=== PATIENT | female | born 1985 | race Caucasian/White ===

== ENCOUNTER 2019-11-17 00:24 | Emergency (ER) | payer OTHER, SELFPAY ==
[2019-11-17 00:31] VITALS: PULSE 90; RESP 16; TEMP 36.7; O2SAT 96; BMI 30.9
[2019-11-17 01:15] LABS: Basophils % 0.4 %; Eosinophils # 0.4 10^3/uL (0.0-0.8); Eosinophils % 4.4 %; Hematocrit 41.1 % (37.0-47.0); Hemoglobin 13.8 g/dL (11.5-15.3); Lymphocytes # 3.1 10^3/uL (0.8-4.8); Lymphocytes % 38.1 %; Mean Corpuscular HGB Conc 33.6 g/dL (30.0-36.0); Mean Corpuscular Hemoglobin 31.6 pg (28.0-34.0); Mean Corpuscular Volume 94.1 fL (81-99); Mean Platelet Volume 10.4 fL (7.4-10.4); Monocytes # 0.5 10^3/uL (0.2-0.9); Monocytes % 6.6 %; Neutrophils # 4.1 10^3/uL (1.8-7.7); Neutrophils % 50.4 %; Nucleated Red Blood Cells % 0 %; Platelet Count 256 10^3/cmm (130-400); Red Blood Count 4.37 10^6/uL (4.1-5.3); Red Cell Distribution Width 12.2 % (12.1-15.1)
[2019-11-17 01:19] LABS: Urine Appearance Cloudy (CLEAR); Urine Color Orange (Yellow)
[2019-11-17 01:20] LABS: Add Urine Microscopic? YES
[2019-11-17 01:31] LABS: Amorphous Sediment Urine 3+; Bacteria Urine 1+; RBC Urine 0-4 /hpf (0-2); Squamous Epithelial Cell Urine 0-4 (0-5); WBC Urine 0-4 /hpf (0-5)
[2019-11-17 01:32] LABS: HCG, Serum Qual Negative (Negative)
[2019-11-17 01:37] LABS: Alanine Aminotransferase 19 U/L (0-33); Albumin Level 4.2 g/dL (3.5-5.2); Alkaline Phosphatase 58 IU/L (35-105); Anion Gap 17.2 (5-19); Aspartate Amino Transferase 19 U/L (0-32); Blood Urea Nitrogen 13 mg/dL (6-20); Calcium 8.9 mg/dL (8.5-10.5); Carbon Dioxide 25 mmol/L (22-29); Chloride 101 mmol/L (98-107); Globulin 2.8 g/dL (1.3-4.6); Glomerular Filtration Rate 70.8 mL/min (90-130); Glucose 101 mg/dL (65-115); Lipase 34 U/L (13-60); Osmolality Calculated 286 mOsm/kg (285-295); Potassium 3.2 mmol/L (3.5-5.1); Sodium 140 mmol/L (136-145); Total Bilirubin 0.2 mg/dL (0.15-1.2)
--- NOTE | 2019-11-17 01:51 | CTR_ITS ---
PROCEDURE INFORMATION: Exam: CT Abdomen And Pelvis With Contrast Exam date and time: 11/17/2019 2:35 AM Age: 34 years old Clinical indication: Abdominal pain; Generalized; Prior surgery; Surgery type: Appy, , gb, hysterectomy; Additional info: Abd pain TECHNIQUE: Imaging protocol: Computed tomography of the abdomen and pelvis with intravenous contrast. Radiation optimization: All CT scans at this facility use at least one of these dose optimization techniques: automated exposure control; mA and/or kV adjustment per patient size (includes targeted exams where dose is matched to clinical indication); or iterative reconstruction. Contrast material: OMNI 300; Contrast volume: 95 ml; Contrast route: INTRAVENOUS (IV); COMPARISON: No relevant prior studies available. RADIATION DOSE METRICS: Total DLP (mGy-cm): 1037.96 FINDINGS: Lungs: The lung bases are clear. Mediastinal space: Possible very small hiatal hernia. Liver: There is fatty infiltration of the liver. Gallbladder and bile ducts: Prior cholecystectomy, no significant biliary tree dilation. Pancreas: Unremarkable. Spleen: Unremarkable. Adrenals: Unremarkable. Kidneys and ureters: No hydronephrosis of either kidney. No visible ureteral calculus. No perinephric fluid. The kidneys enhance homogeneously. Stomach and bowel: Possibility of somewhat thickened mucosa/wall in the stomach. The stomach is poorly distended, and the appearance could be transient on CT. Findings might also represent evidence for gastritis or peptic ulcer disease. Please correlate clinically. There are no CT findings to strongly suggest diverticulitis. Appendix: Reportedly, there has been prior appendectomy. Intraperitoneal space: No free air, ascites, or significant bowel distention. Vasculature: No evidence for abdominal aortic aneurysm. Lymph nodes: No retroperitoneal adenopathy. Bladder: Suspect mild to moderate diffuse urinary bladder wall thickening. Slight indistinctness of the bladder wall. Evaluation is somewhat limited, as the bladder is not well distended. While nonspecific, this could indicate evidence for cystitis. Please correlate clinically. Reproductive: Prior hysterectomy. The right ovary contains a 20 x 16 mm dominant follicle versus small cyst. Significance uncertain due to relatively small size. There is a smaller 13 mm dominant follicle or very small cyst in the right ovary. No significant cul-de-sac fluid. Bones/joints: No significant acute finding. Soft tissues: No significant acute finding. CT/CT abdomen pelvis w con* [id number] IMPRESSION: 1. No free air or significant bowel distention. 2. Suspected urinary bladder wall thickening, possibly indicating cystitis. 3. No hydronephrosis or visible ureteral calculus. No perinephric fluid. 4. Possible thickened mucosa/wall in the stomach, see above discussion. 5. The right ovary contains a 20 x 16 mm dominant follicle versus small cyst. Significance uncertain due to relatively small size. No significant cul-de-sac fluid. 6. Other findings discussed above. Radiation Dose CTDIVOL = (mGy): DLP = 1037.96 (mGy-cm)
[2019-11-17] MEDS: iohexol 300 mg/mL 100 mL Btl IV (03:01)
[2019-11-17] MEDS: sodium chlor 0.9% + KCl 40 mEq 40 MEQ/1,000 ML BAG 1000 MEQ IV (03:08)
[2019-11-17 04:42] VITALS: PULSE 74; RESP 18; O2SAT 98
--- NOTE | 2019-11-18 17:16 | W.ED.ABDPA2 ---
HPI - Abdominal Pain General: Chief Complaint: Abdominal Pain Stated Complaint: LOWER ABD PAIN; N/V Time Seen by Provider: 11/17/19 01:00 History of Present Illness: HPI narrative: 34-year-old female with several days of belly pain, mainly located in her right lower quadrant, as well as periumbilical. She has been vomiting quite a bit. Her states she is not been able to tolerate anything more than a bit of liquid. No food. No diarrhea. She was seen at an outside clinic the day before, and told to come to the ER if her symptoms did not improve. She has a history of multiple belly surgeries. MD elicited complaint: abdominal pain Pain Consistency: constant Location: Periumbilical and RLQ Severity: moderate Quality: cramping and stabbing Radiation: none Migration to: no migration Exacerbating factors: vomiting and movement Relieving factors: nothing Associated Symptoms: Denies change in stool character, fever(s), hematuria and hematemesis Review of Systems Const: Denies: fever(s) Eyes: Denies: change in vision ENMT: Denies: swelling of lips/tongue, epistaxis or sinus pain Card: Denies: chest pain, palpitations, irregular heart rhythm or edema Resp: Denies: dyspnea, productive cough, non-productive cough or wheezing GI: Denies: hematemesis or change in stool character : Denies: hematuria Musc: Reports: back pain; Denies: neck pain Skin/Breast: Denies: rash, pruritus or erythema Neuro: Denies: headache(s), dizziness or vertigo Psych: Denies: anxiety PFSH ED PFSH: Medical History (Updated 11/17/19 @ 04:30 by Per Asencio DO) Immunocompromised patient Social History (Updated 08/08/19 @ 17:46 by Nova Lamas CMA) Smoking and tobacco status: current every day smoker Alcohol intake: never Female Reproductive History: : 1 Physical Exam Const: GENERAL APPEARANCE: well developed ORIENTATION/CONSCIOUSNESS: Yes oriented to person, Yes oriented to place and Yes oriented to time HENMT: COMMON NORMALS: normocephalic, external ears normal and Normal external nose present HEAD & SCALP: normocephalic FACE & SINUS: normal facial exam NOSE: Normal external nose present and No nasal discharge present EXTERNAL EAR: Yes external ears normal MOUTH: tongue normal Eye: COMMON NORMALS: Equal, round and reactive pupils present, EOMs intact bilaterally and conjunctivae normal EYELID: eyelids normal CONJUNCTIVA: Yes conjunctivae normal PUPIL: Yes Equal, round and reactive pupils present Neck/C-Spine: COMMON NORMALS: full ROM GENERAL: No tracheal deviation Chest: COMMONS NORMALS: normal inspection of the chest CHEST: No tenderness Resp: COMMON NORMALS: clear to auscultation bilaterally EFFORT & INSPECTION: No tachypneic, No respiratory distress, No retractions, No uses accessory muscles and No tracheal deviation AUSCULTATION: clear to auscultation bilaterally, no rhonchi, no wheezes and lung sounds not diminished Cardio: COMMON NORMALS: regular rate and regular rhythm RATE: regular rate RHYTHM: regular rhythm HEART SOUNDS: no murmurs PERIPHERAL PULSES: radial pulses present GI: INSPECTION: No abdominal distension AUSCULTATION: No Hyperactive bowel sounds present and No Hypoactive bowel sounds present PALPATION: Yes Tenderness to palpation present (GI) Details: RLQ and other (Suprapubic), No Guarding due to palpation present (GI) and No Rigid due to palpation PERCUSSION: no dullness to percussion and no tympanic to percussion : BLADDER/KIDNEY EXAM: Yes CVA tenderness on the right Back/Pelvis: GENERAL BACK: Yes CVA tenderness Neuro: SENSORIUM/ORIENTATION: Yes oriented to person, Yes oriented to place and Yes oriented to time Psych: COMMON NORMALS: mental status grossly normal Skin: COMMON NORMALS: no rashes or lesions noted GENERAL SKIN EXAM: no rashes or lesions noted Course Vital Signs: Vital signs: Vital Signs Temperature 98.0 F 11/17/19 00:31 Pulse Rate 74 11/17/19 04:42 Respiratory Rate 18 11/17/19 04:42 Pulse Oximetry 98 11/17/19 04:42 MDM - Abdominal Pain MDM Narrative: Medical decision making narrative: She is received some fluid and antiemetic here. She is feeling better. She has a white blood cell count of 8. Hemoglobin 14. Potassium was repleted because it was 3.2. This was done IV. CT scan reveals a thickened gallbladder wall consistent with urinary tract infection/cystitis. Urinalysis was compromised due to treatment with Azo. She does have lites and bacteria in the urine noted. We went ahead and treated with IV antibiotics. She will go home on oral Bactrim antiemetics and pain medication. Lab Data: Attestation: I reviewed the patient's lab results. Labs: Lab Results 11/17/19 11/17/19 11/17/19 Range/Units 00:30 01:04 01:04 WBC 8.0 (4.0-10.0) 10^3/ uL RBC 4.37 (4.1-5.3) 10^6/u L Hgb 13.8 (11.5-15.3) g/dL Hct 41.1 (37.0-47.0) % MCV 94.1 (81-99) fL MCH 31.6 (28.0-34.0) pg MCHC 33.6 (30.0-36.0) g/dL RDW 12.2 (12.1-15.1) % Plt Count 256 (130-400) 10^3/c mm MPV 10.4 (7.4-10.4) fL Neut % (Auto) 50.4 % Lymph % (Auto) 38.1 % [place] % (Auto) 6.6 % Eos % (Auto) 4.4 % Baso % (Auto) 0.4 % Neut # (Auto) 4.1 (1.8-7.7) 10^3/u L Lymph # (Auto) 3.1 (0.8-4.8) 10^3/u L [place] # (Auto) 0.5 (0.2-0.9) 10^3/u L Eos # (Auto) 0.4 (0.0-0.8) 10^3/u L Baso # (Auto) 0.0 (0.0-0.1) 10^3/u L Nucleated RBC % (a uto) 0 % Nucleated RBCs # 0.0 /100WBC Sodium 140 (136-145) mmol/L Potassium 3.2 L (3.5-5.1) mmol/L Chloride 101 (98-107) mmol/L Carbon Dioxide 25 (22-29) mmol/L Anion Gap 17.2 (5-19) BUN 13 (6-20) mg/dL Creatinine 0.9 (0.5-0.9) mg/dL GFR Calculation 70.8 L (90-130) mL/min Glucose 101 (65-115) mg/dL Calculated Osmolal ity 286 (285-295) mOsm/k g Calcium 8.9 (8.5-10.5) mg/dL Total Bilirubin 0.2 (0.15-1.2) mg/dL AST 19 (0-32) U/L ALT 19 (0-33) U/L Alkaline Phosphata se 58 (35-105) IU/L Total Protein 7.0 (6.6-8.7) g/dL Albumin 4.2 (3.5-5.2) g/dL Globulin 2.8 (1.3-4.6) g/dL Lipase 34 (13-60) U/L HCG, Qual (Negative) Urine Color [place] (Yellow) Urine Appearance Cloudy (CLEAR) Urine pH TNP Ur Specific Gravit y TNP Urine Protein TNP Urine Glucose (UA) TNP Urine Ketones TNP Urine Blood TNP Urine Nitrate TNP Urine Bilirubin TNP Urine Urobilinogen TNP Ur Leukocyte Naila ase TNP Urine RBC 0-4 H (0-2) /hpf Urine WBC 0-4 H (0-5) /hpf Ur Squamous Epith Cells 0-4 H (0-5) Amorphous Sediment 3+ Urine Bacteria 1+ H (NONE) 11/17/19 Range/Units 01:04 WBC (4.0-10.0) 10^3/ uL RBC (4.1-5.3) 10^6/u L Hgb (11.5-15.3) g/dL Hct (37.0-47.0) % MCV (81-99) fL MCH (28.0-34.0) pg MCHC (30.0-36.0) g/dL RDW (12.1-15.1) % Plt Count (130-400) 10^3/c mm MPV (7.4-10.4) fL Neut % (Auto) % Lymph % (Auto) % [place] % (Auto) % Eos % (Auto) % Baso % (Auto) % Neut # (Auto) (1.8-7.7) 10^3/u L Lymph # (Auto) (0.8-4.8) 10^3/u L [place] # (Auto) (0.2-0.9) 10^3/u L Eos # (Auto) (0.0-0.8) 10^3/u L Baso # (Auto) (0.0-0.1) 10^3/u L Nucleated RBC % (a uto) % Nucleated RBCs # /100WBC Sodium (136-145) mmol/L Potassium (3.5-5.1) mmol/L Chloride (98-107) mmol/L Carbon Dioxide (22-29) mmol/L Anion Gap (5-19) BUN (6-20) mg/dL Creatinine (0.5-0.9) mg/dL GFR Calculation (90-130) mL/min Glucose (65-115) mg/dL Calculated Osmolal ity (285-295) mOsm/k g Calcium (8.5-10.5) mg/dL Total Bilirubin (0.15-1.2) mg/dL AST (0-32) U/L ALT (0-33) U/L Alkaline Phosphata se (35-105) IU/L Total Protein (6.6-8.7) g/dL Albumin (3.5-5.2) g/dL Globulin (1.3-4.6) g/dL Lipase (13-60) U/L HCG, Qual Negative (Negative) Urine Color (Yellow) Urine Appearance (CLEAR) Urine pH Ur Specific Gravit y Urine Protein Urine Glucose (UA) Urine Ketones Urine Blood Urine Nitrate Urine Bilirubin Urine Urobilinogen Ur Leukocyte Naila ase Urine RBC (0-2) /hpf Urine WBC (0-5) /hpf Ur Squamous Epith Cells (0-5) Amorphous Sediment Urine Bacteria (NONE) Discharge Plan Discharge Patient Disposition: Home, Self-Care Clinical Impression: Abdominal pain Qualifiers: Abdominal location: right lower quadrant Qualified Code(s): R10.31 - Right lower quadrant pain Urinary tract infection Qualifiers: Urinary tract infection type: acute cystitis Hematuria presence: without hematuria Qualified Code(s): N30.00 - Acute cystitis without hematuria Condition: Stable Prescriptions: [place] 5-325 mg tablet 1 tab PO Q6H PRN (Reason: pain) Qty: 10 RF: 0 ondansetron 4 mg tablet,disintegrating 4 mg PO Q6H PRN (Reason: nausea and vomiting) Qty: 10 RF: 0 Bactrim DS 800-160 mg tablet 1 tab PO DAILY 5 Days Qty: 10 RF: 0 No Action gabapentin 300 mg capsule 300 mg PO TID RF: 0 levothyroxine 88 mcg capsule 88 mcg PO DAILY RF: 0 buspirone 10 mg tablet 7.5 mg PO DAILY RF: 0 Topamax 100 mg Tablet 100 mg PO BID RF: 0 Discharge Orders: Discharge Order (Routine); Ordered 11/17/19 Ordered By: Per Asencio Discharge Diet: Advance as tolerated and Clear Liquid Discharge Activity: Increase activity as tolerated Patient Instructions: Urinary Tract Infection in Women (ED), Abdominal Pain (ED) Activity Restrictions/Additional Instructions: Return for worsening pain despite treatment, vomiting liquids or medications despite treatment, other concerning symptoms. Return also for fever greater than 100, mental status changes, etc. Discharge Date/Time: 11/17/19 04:44 Coding Level of Care Code ED [employer] for [facility]
== END 2019-11-17 04:44 | disposition home or self-care (01) ==
PROVIDERS: Nurse Practitioner Family; Emergency Provider Emergency Medicine
DX: N30.00 Acute cystitis without hematuria (principal); F17.210 Nicotine dependence, cigarettes, uncomplicated
CPT/HCPCS: 12345; 74177; 80053; 81001; 83690; 84703; 85025; 96365; 96366; 99282; 99283; Q9967

== ENCOUNTER 2021-01-13 14:29 | Emergency (ER) | payer SELFPAY ==
[2021-01-13 15:18] VITALS: BP 127/86; PULSE 71; RESP 18; TEMP 36.7; O2SAT 96
--- NOTE | 2021-01-13 17:21 | W.ED.NECK ---
HPI - Neck Pain/Injury General: Chief Complaint: Neck Pain/Injury Stated Complaint: L SIDE FACE/NECK SWOLLEN/PAINFUL Time Seen by Provider: 01/13/21 17:20 History of Present Illness: HPI Narrative: 35-year-old female comes in today with complaints of sore throat for the last 3 to 4 days. Patient has recently had COVID-19 at the end of November. Patient reports has improved some from the COVID-19 and then the last few days she started having a sore throat and some left side facial sinus pain and pressure. Patient appears well. Patient appears in no acute distress. Review of Systems General: Reports: 10 or more systems reviewed and unremarkable except in HPI and below ENMT: Reports: throat pain and sinus pain PFS ED PFSH: Medical History (Updated 01/13/21 @ 17:32 by RADHA Guerra) Immunocompromised patient Social History (Updated 08/08/19 @ 17:46 by Nova Lamas [employer]ESE PRODUCTION SUPERVISOR) Smoking and tobacco status: current every day smoker Alcohol intake: never Physical Exam Const: COMMON NORMALS: no acute distress and patient oriented x3 GENERAL APPEARANCE: cooperative HENMT: COMMON NORMALS: normocephalic, TM's normal bilaterally and Normal external nose present HEAD & SCALP: normal to inspection and normocephalic NOSE: Normal external nose present TYMPANIC MEMBRANE: TM's normal bilaterally MOUTH: Normal oral and palatal mucosa present THROAT: posterior oropharynx abnormal erythema Eye: GENERAL EYE: appearance normal, both eyes and all related structures Neck/C-Spine: COMMON NORMALS: full ROM Lymph: OTHER: Anterior cervical lymphadenopathy to the left Chest: COMMONS NORMALS: normal inspection of the chest Resp: COMMON NORMALS: normal respiratory effort EFFORT & INSPECTION: Yes able to speak in complete sentences Cardio: COMMON NORMALS: regular rate and regular rhythm RATE: regular rate RHYTHM: regular rhythm GI: COMMON NORMALS: non-tender : COMMON NORMALS: Yes no CVA tenderness BLADDER/KIDNEY EXAM: Yes no CVA tenderness Back/Pelvis: COMMON NORMALS: no CVA tenderness and thoracic and lumbar spine normal to inspection Extremity: COMMON NORMALS: normal to inspection Neuro: COMMON NORMALS: patient oriented x3 and moves all extremities Psych: COMMON NORMALS: mental status grossly normal and cooperative Skin: COMMON NORMALS: no rashes or lesions noted GENERAL SKIN EXAM: no rashes or lesions noted Course Vital Signs: Vital signs: Vital Signs Temperature 98.1 F 01/13/21 15:18 Pulse Rate 71 01/13/21 15:18 Respiratory Rate 18 01/13/21 15:18 Blood Pressure 127/86 01/13/21 15:18 Pulse Oximetry 96 01/13/21 15:18 MDM - Neck Pain/Injury MDM Narrative: Medical decision making narrative: Patient comes in today with complaints of sore throat for about 3 to 4 days. Patient also reports some nausea and some difficulty with diet. Patient had COVID-19 about 1 month ago and has recently started feeling better over the last 2 weeks but in the last 3 to 4 days she started having a sore throat with some sinus pressure on the left side of face. Differential diagnosis includes acute pharyngitis, rhinosinusitis, otitis media, malingering. Exam was fairly unremarkable except for some mild erythema to the throat and some mild cervical anterior lymphadenopathy. We will treat with amoxicillin 500 mg 3 times a day for 7 days and give 1 dose of dexamethasone 10 mg p.o. Patient will be given some Zofran to help with any nausea. Also reviewed some recommendations for a light diet with patients with gastroparesis due to patient's poor recovery from her COVID-19 and decreased appetite and nausea. Patient agreed to plan with recommendations for follow-up with primary care. Discharge Plan Discharge Patient Disposition: Home Clinical Impression: Gastroparesis Acute pharyngitis Qualifiers: Pharyngitis/tonsillitis etiology: unspecified etiology Qualified Code(s): J02.9 - Acute pharyngitis, unspecified Condition: Stable Prescriptions: New amoxicillin 500 mg capsule 500 mg PO TID Qty: 21 RF: 0 Continued ondansetron 4 mg tablet,disintegrating 4 mg PO Q6H PRN (Reason: nausea and vomiting) Qty: 10 RF: 0 No Action gabapentin 300 mg capsule 300 mg PO TID RF: 0 levothyroxine 88 mcg capsule 88 mcg PO DAILY RF: 0 buspirone 10 mg tablet 7.5 mg PO DAILY RF: 0 Topamax 100 mg Tablet 100 mg PO BID RF: 0 [place] 5-325 mg tablet 1 tab PO Q6H PRN (Reason: pain) Qty: 10 RF: 0 Discharge Orders: Discharge ED (Routine); Ordered 01/13/21 Ordered By: Martin Mckinley Referrals: Len Dixon DO [Primary Care Provider] - Discharge Diet: Usual diet Discharge Activity: Increase activity as tolerated Patient Instructions: Pharyngitis (ED), Opioid Safety Activity Restrictions/Additional Instructions: Drink plenty of fluids with medications. Start with a light diet with less complex proteins. Eat gelatin, yogurts, boiled chicken, rice, bananas, apples and toast are usually good starters after a significant illness. Follow-up with primary care for continued difficulties with eating. Return to the ER for high fever, blood in vomit or stool, or new concerns. 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
[2021-01-13] MEDS: dexamethasone 4 mg Tablet 10 MG PO (17:41)
== END 2021-01-13 17:43 | disposition home or self-care (01) ==
PROVIDERS: Emergency Provider Nurse Practitioner Family; PCP Family Medicine
DX: J02.9 Acute pharyngitis, unspecified (principal); K31.84 Gastroparesis; Z86.16 Personal history of COVID-19
CPT/HCPCS: 99283; J8540